=== PATIENT | female | born 1985 | race Caucasian/White ===

== ENCOUNTER 2016-09-08 14:39 | Emergency (ER) | payer MEDICAID ==
[~2016-09-08] VITALS: Ht 160 cm; Wt 68.0 kg
[2016-09-08 14:41] VITALS: BP 122/66
== END 2016-09-08 15:10 | disposition home or self-care (01) ==
LOC: ER 14:42
DX: S16.1XXA Strain of muscle, fascia and tendon at neck level, initial encounter (principal); F41.9 Anxiety disorder, unspecified; J45.909 Unspecified asthma, uncomplicated; Z76.0 Encounter for issue of repeat prescription; Y09 Assault by unspecified means; Y93.89 Activity, other specified; Y92.9 Unspecified place or not applicable; Y99.9 Unspecified external cause status
CPT/HCPCS: 99284; A4606; Z7610

== ENCOUNTER 2017-05-16 12:53 | Emergency (ER) | payer MEDICAID, OTHER ==
[~2017-05-16] VITALS: Ht 160 cm; Wt 70.3 kg
[2017-05-16 13:10] VITALS: BP 124/94
== END 2017-05-16 13:36 | disposition home or self-care (01) ==
LOC: ER 13:00
DX: S16.1XXA Strain of muscle, fascia and tendon at neck level, initial encounter (principal); J45.909 Unspecified asthma, uncomplicated; F41.9 Anxiety disorder, unspecified; V43.52XA Car driver injured in collision with other type car in traffic accident, initial encounter; Y93.89 Activity, other specified; Y92.89 Other specified places as the place of occurrence of the external cause; Y99.8 Other external cause status
CPT/HCPCS: 99282; A4606; Z7610

== ENCOUNTER 2019-07-09 17:02 | Emergency (ER) | payer OTHER ==
[~2019-07-09] VITALS: Ht 160 cm; Wt 74.8 kg
[2019-07-09 17:05] VITALS: BP 156/118
== END 2019-07-09 17:54 | disposition home or self-care (01) ==
LOC: ER 17:32
DX: F41.0 Panic disorder [episodic paroxysmal anxiety] (principal); J20.9 Acute bronchitis, unspecified; J45.909 Unspecified asthma, uncomplicated; I10 Essential (primary) hypertension; Z60.2 Problems related to living alone